=== PATIENT | male | born 1980 | race African-American/Black ===

== ENCOUNTER 2017-09-17 23:24 | Emergency (ER) | payer BC, OTHER ==
[~2017-09-17] VITALS: Ht 190.5 cm; Wt 108.9 kg
[2017-09-17] MEDS ORDERED: AMLODIPINE BESY10 MG PO (23:48)
[2017-09-18 00:50] VITALS: BP 131/84
== END 2017-09-18 00:57 | disposition home or self-care (01) ==
LOC: ER 23:24
DX: S61.412A Laceration without foreign body of left hand, initial encounter (principal); W45.8XXA Other foreign body or object entering through skin, initial encounter; Y93.89 Activity, other specified; Y92.89 Other specified places as the place of occurrence of the external cause; Y99.8 Other external cause status